=== PATIENT | female | born 1980 | race Caucasian/White ===

== ENCOUNTER 2020-03-29 09:22 | Emergency (ER) | payer OTHER, MEDICAID ==
[~2020-03-29] VITALS: Ht 152.4 cm; Wt 68.0 kg
[2020-03-29] MEDS ORDERED: TRANDATE 200 M200 M1 PO (09:32)
[2020-03-29] MEDS ORDERED: PREDNISONE 20 M20 M1 PO (10:11)
[2020-03-29 12:03] VITALS: BP 135/70
== END 2020-03-29 12:04 | disposition home or self-care (01) ==
LOC: M.ERS 09:22
DX: R07.0 Pain in throat (principal); T36.0X5A Adverse effect of penicillins, initial encounter; T36.1X5A Adverse effect of cephalosporins and other beta-lactam antibiotics, initial encounter; Z88.1 Allergy status to other antibiotic agents; Y92.89 Other specified places as the place of occurrence of the external cause